=== PATIENT | female | born 1950 | race Caucasian/White ===

== ENCOUNTER 2019-04-19 08:41 | Day surgery (SDC) ==
--- NOTE | 2019-04-12 09:45 | EKG Report ---
Test Performed on : 04/12/2019 09:39:46 AM Test Reason : PAT Blood Pressure : / mmHG Vent. Rate : 076 BPM Atrial Rate : 076 BPM P-R Int : 150 ms QRS Dur : 086 ms QT Int : 396 ms P-R-T Axes : 081 080 080 degrees QTc Int : 445 ms Sinus rhythm. with marked sinus arrhythmia. Otherwise normal ECG When compared with ECG of 09-MAY-2016 09:50, No significant change was found Unconfirmed Result
[2019-04-12 09:48] LABS: URINE SOURCE CLEAN CATCH
[2019-04-12 10:01] LABS: BILIRUBIN URINE NEGATIVE (NEGATIVE); BLOOD URINE NEGATIVE (NEGATIVE); COLOR YELLOW; GLUCOSE URINE NEGATIVE (NEGATIVE); HEMATOCRIT 38.2 % (37.0-47.0); HEMOGLOBIN 12.9 g/dL (12.0-16.0); IMM GRAN# 0.02 X1000 (0.0-0.04); IMM GRAN% 0.3 % (0.0-0.5); KETONE URINE NEGATIVE (NEGATIVE); LEUKOCYTES URINE NEGATIVE (NEGATIVE); LYMPH# 2.13 X1000 (1.2-3.4); LYMPH% 35.3 % (20.5-51.1); MCH 28.2 PG (27-31); MCHC 33.8 g/dL (33-37); MCV 83.6 FL (81-99); MONO# 0.43 X1000 (0.11-0.59); MONO% 7.1 % (1.7-9.3); MPV 8.9 FL (7.4-10.4); NEUT# 3.45 X1000 (1.4-6.5); NEUT% 57.3 % (42.2-75.2); NITRITE URINE NEGATIVE (NEGATIVE); PH URINE 6.5; PLT 400 X1000 (130-400); PROTEIN URINE NEGATIVE (NEGATIVE); RBC 4.57 XMIL (4.2-5.4); RDW 13.8 % (11.5-14.5); TURBIDITY URINE CLEAR (CLEAR); UROBILINOGEN URINE NORMAL (NORMAL); WBC 6.03 X1000 (4.8-10.8)
[2019-04-12 10:02] LABS: UR EPITHELIAL CELLS <10 /HPF (<10); URINE BACTERIA 1+ /HPF; URINE RBC <10 /HPF (<10)
[2019-04-12 10:07] LABS: INR 1.04; PROTIME 13.7 Seconds (11.0-16.0)
[2019-04-12 10:08] LABS: PTT 34.6 Seconds (22.3-41.8)
[2019-04-12 10:16] LABS: HEMOGLOBIN A1C 5.8 % (4.8-6.0)
[2019-04-12 10:34] LABS: AGAP 5; BUN 9 mg/dL (8-22); CHLORIDE 92 mmol/L (98-107); COSMO 258; CREATININE 0.8 mg/dL (0.5-0.9); ESTIMATED GFR > 60; GLUCOSE 107 mg/dL (70-104); POTASSIUM 4.3 mmol/L (3.5-5.1); SODIUM 129 mmol/L (136-145); TCO2 32 mmol/L (25-35)
[2019-04-19] MEDS ORDERED: REGLAN ONE (09:21)
[2019-04-19] MEDS ORDERED: PEPCID ONE (09:21)
[2019-04-19] MEDS ORDERED: LYRICA ONE (09:21)
[2019-04-19] MEDS ORDERED: COLACE ONE (09:21)
[2019-04-19] MEDS ORDERED: CELEBREX ONE (09:22)
[2019-04-19] MEDS ORDERED: KEFZOL 1 GM/D5W 1 GM/50 ML IVPB ONE (09:22)
[2019-04-19] MEDS ORDERED: LR 1,000 ML ONE (09:22)
[2019-04-19] MEDS ORDERED: DURAMORPH ONE (10:25)
[2019-04-19] MEDS ORDERED: VANCOMYCIN ONE (10:25)
[2019-04-19] MEDS ORDERED: MARCAINE 0.25% PF ONE (10:25)
[2019-04-19] MEDS ORDERED: TORADOL ONE (10:25)
[2019-04-19] MEDS ORDERED: CYKLOKAPRON 1,000 MG/NS 2,000 MG/200 ML IVPB ONE (10:26)
[2019-04-19] MEDS ORDERED: SODIUM CHLORIDE 0.9% ONE (10:26)
[2019-04-19] MEDS ORDERED: EXPAREL 1.3% ONE (10:26)
[2019-04-19] MEDS ORDERED: DIPRIVAN 1% ONE (10:41)
[2019-04-19] MEDS ORDERED: VERSED ONE (10:41)
[2019-04-19] MEDS ORDERED: FENTANYL ONE (10:41)
[2019-04-19] MEDS ORDERED: NEO-SYNEPHRINE ONE ×2 (11:09→12:00)
[2019-04-19] MEDS ORDERED: EPHEDRINE ONE (11:20)
[2019-04-19] MEDS ORDERED: OFIRMEV 1000 MG/ISOTONIC SOLN 1,000 MG/100 ML BOTTLE ONE (11:43)
[2019-04-19 11:48] LABS: URINE SOURCE CATH
[2019-04-19] MEDS ORDERED: DECADRON ONE (11:56)
[2019-04-19 11:59] LABS: BILIRUBIN URINE NEGATIVE (NEGATIVE); BLOOD URINE NEGATIVE (NEGATIVE); COLOR YELLOW; GLUCOSE URINE NEGATIVE (NEGATIVE); KETONE URINE NEGATIVE (NEGATIVE); LEUKOCYTES URINE NEGATIVE (NEGATIVE); NITRITE URINE NEGATIVE (NEGATIVE); PROTEIN URINE TRACE mg/dL (NEGATIVE); TURBIDITY URINE CLEAR (CLEAR); UROBILINOGEN URINE 2 mg/dL (NORMAL)
[2019-04-19 12:00] LABS: UR EPITHELIAL CELLS <10 /HPF (<10); URINE BACTERIA NEGATIVE /HPF; URINE RBC <10 /HPF (<10); URINE WBC <10 /HPF (<10)
[2019-04-19] MEDS ORDERED: CYKLOKAPRON 1,000 MG/NS 1,000 MG/100 ML IVPB ONE (12:51)
[2019-04-19] MEDS ORDERED: NS 1,000 ML ONE (13:19)
--- NOTE | 2019-04-19 13:37 | Diag Imaging Result Doc PS360 ---
KNEE 1-2 VIEWS-LEFT - 04/19/2019 INDICATION: post op TECHNIQUE: Two views COMPARISON: 12/19/2018 FINDINGS: There has been left total knee arthroplasty. Alignment is anatomic. No hardware fracture or loosening. IMPRESSION: No complication. Electronically signed by Elliot Hall 04/19/2019 1:35 PM
[2019-04-19] MEDS ORDERED: ZOFRAN PO PRN (14:45)
[2019-04-19] MEDS ORDERED: MORPHINE IV PRN ×3 (14:45)
[2019-04-19] MEDS ORDERED: OXY IR PO PRN (14:45)
[2019-04-19] MEDS: NS 1,000 ML IV SCH (15:48)
[2019-04-19] MEDS ORDERED: LOPID PO ONE (16:06)
[2019-04-19] MEDS ORDERED: EFFEXOR XR PO ONE (16:06)
[2019-04-19] MEDS ORDERED: SYNTHROID PO ONE (16:07)
[2019-04-19] MEDS ORDERED: PRINZIDE 20/12.5MG PO ONE (16:08)
[2019-04-19] MEDS: TYLENOL PO SCH (17:48)
[2019-04-19] MEDS: KEFZOL 1 GM/D5W 1 GM/50 ML IVPB IV SCH (18:01)
--- NOTE | 2019-04-19 19:15 | OPERATIVE NOTE ---
PROCEDURE DATE: 04/19/2019 PREOPERATIVE DIAGNOSIS: Degenerative osteoarthritis, left knee. POSTOPERATIVE DIAGNOSIS: Degenerative osteoarthritis, left knee PROCEDURE: Left total knee arthroplasty, DePuy Attune size 6, narrow posterior stabilized femur, a size 5 tibial tray, a 5 mm rotating platform tibial insert, and a 35 mm medialized anatomic patella. SURGEON: Dr. Estrella. TACK CUTTER: Jennifer Petty, who was necessary for proper retraction and manipulation of the extremity during the case. SECOND JOB PRINTER: Eric Figueroa. ANESTHESIA: Spinal. IV FLUIDS: 1700 mL lactated Ringer. ESTIMATED BLOOD LOSS: 25 mL. TOURNIQUET TIME: 65 minutes at 300 mmHg. COMPLICATIONS: None. INDICATION: The patient is a 68 year female with chronic history of pain and discomfort of the left knee. Continued pain and discomfort despite appropriate nonoperative treatment. X-rays revealed degenerative osteoarthritis and recommendation to proceed with left total knee arthroplasty was offered. Risks and benefits of surgery were explained, including the risks of anesthesia, , bleeding, infection, failure to relieve pain, postoperative stiffness, nerve injury, blood clots, and other imponderables. All questions were answered. Patient and family wished to proceed with surgery. DETAILS OF OPERATION: Patient taken to operating room and underwent spinal anesthesia. After adequate anesthesia was obtained, she was placed supine on the operating table. Left lower extremity was subsequently prepped and draped in the usual sterile fashion. An Esmarch was used to exsanguinate the left lower extremity and tourniquet was inflated to 300 mmHg. A standard anterior incision was made with a skin knife. Medial and lateral skin envelopes were developed. Standard medial parapatellar arthrotomy was then performed. Patella fat pad was excised. Retractors were then placed. Approximately 1 cm anterior to the PCL insertion, a starting reamer was passed. The intramedullary guide with a distal femoral cutting block was pinned in position. Distal femoral cut was then performed in standard fashion. A sizing block was placed and measured size 6. Corresponding size 6 cutting block was pinned in position. Anterior and posterior chamfer cuts were then made. Attention was then turned to the proximal tibia. Using the extramedullary guide, proximal tibia cutting block was pinned in position. Had good alignment confirmed with the alignment an. The proximal tibia was then resected. Medial and lateral menisci were excised. A curved osteotome was used to remove the posterior osteophytes off the distal femur. After this had been performed, a spacer block was placed and had a good soft tissue balance in both flexion and extension. The attention turned back to the proximal tibia. Size 5 tibial tray appeared to be correct size. The tibial tray was then pinned in position. This was followed by a central reamer and a fin punch. A box cutting guide was then pinned on the distal femur. A box cut was then performed. Trial femoral component was then placed and 2 lug holes were drilled. Trial tibial insert was then placed and had good soft tissue balancing. Patella was everted and resected in standard fashion. A size 35 appeared to correct size. Holes were drilled. The trial patellar component was then placed. The knee had good patellofemoral tracking at that point. The trial components were then removed. Copious irrigation was then performed with antibiotic pulsatile lavage. Vancomycin was mixed with cement on the back table. Sequential cementing was then performed, first with the tibial tray, and excess cement was removed with a Whick followed by the femoral component and excess cement was removed with a Whick, followed by a trial tibial insert in full extension and axial loading was maintained while cement cured. The trial tibial insert was then placed in full extension. Axial load was maintained while cement cured. Patellar component was cemented in standard fashion. Patellar clamp was placed. While cement was curing, Exparel was placed in deep soft tissue as well as the subcutaneous tissue. After cement had cured, peripheral cement was removed with a small osteotome. The 5 mm rotating platform tibial insert appeared to be correct size. The trial insert was removed. Exparel was placed in deep posterior capsule. The wound was copiously irrigated once again. This 5 mm rotating platform tibial insert was then placed. The knee was then carried through range of motion with good range of motion, good soft tissue balance, good patellofemoral tracking. A 1/8 Hemovac drain was placed and was not sewn in. Copious irrigation was then performed once again with antibiotic pulsatile lavage. #1 Vicryl was used to repair the arthrotomy followed by 2-0 Vicryl to repair subcutaneous tissue and skin elke. Adaptic, sterile 4x4's, Webril, Cryo Unit, and Michael wrap were applied to the left lower extremity. Patient tolerated the procedure well. No complications. Transferred to recovery room in stable condition. cc: Yves Estrella MD
[2019-04-19] MEDS: OXY IR PO PRN (19:25)
[2019-04-19] MEDS: PERIDEX MT SCH (20:56)
[2019-04-19] MEDS ORDERED: PERIDEX MT SCH (21:00)
[2019-04-19] MEDS ORDERED: DESYREL PO SCH (21:00)
[2019-04-19] MEDS ORDERED: DOXEPIN PO SCH (21:00)
[2019-04-19] MEDS ORDERED: PATIENT'S OWN MED PO SCH (21:00)
[2019-04-20] MEDS: NS 1,000 ML IV SCH ×2 (00:32→08:02)
[2019-04-20] MEDS: OXY IR PO PRN ×4 (00:32→09:31)
[2019-04-20] MEDS: TYLENOL PO SCH ×2 (00:33→06:54)
[2019-04-20] MEDS: KEFZOL 1 GM/D5W 1 GM/50 ML IVPB IV SCH (03:01)
[2019-04-20] MEDS ORDERED: ASPIRIN PO SCH (06:00)
[2019-04-20 06:52] LABS: HEMOGLOBIN 9.7 g/dL (12.0-16.0)
[2019-04-20 06:58] LABS: AGAP 15; BUN 9 mg/dL (8-22); CHLORIDE 95 mmol/L (98-107); COSMO 267; CREATININE 0.9 mg/dL (0.5-0.9); ESTIMATED GFR > 60; GLUCOSE 133 mg/dL (70-104); POTASSIUM 3.8 mmol/L (3.5-5.1); SODIUM 133 mmol/L (136-145); TCO2 23 mmol/L (25-35)
[2019-04-20] MEDS ORDERED: SYNTHROID PO SCH (07:00)
[2019-04-20 07:43] VITALS: BP 149/69
[2019-04-20] MEDS ORDERED: EFFEXOR XR PO SCH (09:00)
[2019-04-20] MEDS ORDERED: PRINZIDE 20/12.5MG PO SCH (09:00)
[2019-04-20] MEDS ORDERED: LOPID PO SCH (09:00)
[2019-04-20] MEDS: PERIDEX MT SCH (09:03)
--- NOTE | 2019-04-20 12:14 | ORTHOPAEDICS PROGRESS NOTE ---
DATE: 04/20/2019 SUBJECTIVE: The patient is a pleasant, 68-year-old female who is 1 day status post left total knee arthroplasty. Patient is currently resting comfortably. She has no complaints this morning. PHYSICAL EXAMINATION: Exam of the left lower extremity, her wound looks good. There are no signs or symptoms of infection. Her calf is soft. She has active dorsiflexion plantar flexion. She is neurovascularly distally. LABORATORY: Her labs are pending. IMPRESSION: Postoperative day #1 status post left total knee arthroplasty. PLAN: At this point, we will plan on discharging home after physical therapy. We will arrange for outpatient physical therapy. The patient will follow up in the office on 05/02/2019. cc: Yves Estrella MD
== END 2019-04-20 10:19 | disposition home or self-care (01) ==
LOC: OR 08:41 → 4N 08:41 → OR 04-20 10:19
PROVIDERS: ATTEND Orthopaedic Surgery Adult Reconstructive Orthopaedic Surgery